=== PATIENT | female | born 1975 | race Caucasian/White ===

== ENCOUNTER 2020-05-12 00:23 | Emergency (ER) | payer MEDICAID ==
[~2020-05-12] VITALS: Ht 165.1 cm; Wt 96.6 kg
[~2020-05-12 00:23] MED LIST: DIAZ-351 PO; HYDR-4383 PO; ONDA4TAB6 PO; OXYC-134 PO
[2020-05-12 00:25] VITALS: BP 131/74
[2020-05-12] MEDS ORDERED: DOXYCYCLINE 100MG CAPSULE PO STA (01:14)
[2020-05-12] MEDS ORDERED: ceFAZolin 1gm IM kit IM ONE (01:15)
[2020-05-12] MEDS ORDERED: ondansetron 4mg rapidly disintigrating tab PO ONE (01:15)
[2020-05-12] MEDS ORDERED: DOXY100C43 PO (01:16)
[2020-05-12] MEDS ORDERED: LIDOcaine 1% W/epiNEPHrine 1:200,000 10ml vial ONE (07:00)
== END 2020-05-12 01:56 | disposition home or self-care (01) ==
LOC: ER 00:23
DX: L02.415 Cutaneous abscess of right lower limb (principal); L03.115 Cellulitis of right lower limb; E78.00 Pure hypercholesterolemia, unspecified; E11.9 Type 2 diabetes mellitus without complications; G89.29 Other chronic pain; F12.90 Cannabis use, unspecified, uncomplicated; Z90.49 Acquired absence of other specified parts of digestive tract; Z98.51 Tubal ligation status; Z72.89 Other problems related to lifestyle; Z79.2 Long term (current) use of antibiotics
CPT/HCPCS: 10060; 87070; 96372; 99283; J0690; 87077; 87186